=== PATIENT | female | born 1995 | race Hispanic/Latino ===

== ENCOUNTER 2018-10-28 10:36 | Emergency (ER) | payer OTHER ==
[2018-10-28 10:51] VITALS: BP 103/61
[2018-10-28 11:16] LABS: Basophils # (Auto) 0.1 K/mm3 (0.0-0.1); Basophils % (Auto) 0.6 % (0.0-1.8); Eosinophils # (Auto) 0.1 K/mm3 (0.0-0.4); Eosinophils % (Auto) 1.2 % (0.0-4.3); Hematocrit 39.1 % (30.3-42.9); Hemoglobin 13.2 gm/dl (10.1-14.3); Lymphocytes # (Auto) 2.3 K/mm3 (1.2-5.4); Lymphocytes % (Auto) 21.3 % (13.4-35.0); Mean Corpuscular HGB Conc 34 % (30-34); Mean Corpuscular Volume 92 fl (79-97); Monocytes # (Auto) 0.7 K/mm3 (0.0-0.8); Monocytes % (Auto) 6.7 % (0.0-7.3); Platelet Count 287 K/mm3 (140-440); Red Blood Count 4.27 M/mm3 (3.65-5.03); Red Cell Distribution Width 13.7 % (13.2-15.2)
--- NOTE | 2018-10-28 11:47 | Emergency Department Report ---
ED Female HPI - General Chief complaint: Vaginal Bleeding Stated complaint: 10WKS /BLEEDING Time Seen by Provider: 10/28/18 11:42 Source: patient Mode of arrival: Ambulatory Limitations: No Limitations - History of Present Illness Initial comments: This is a 23-year-old female who presents ED stating she is approximately 10 weeks , complaining of vaginal bleed that started yesterday. Patient states he was spotting yesterday and got worse this morning so she came to be evaluated. She states that vaginal bleeding and slight bright red in nature. She admits mild pelvic cramping no pain. She denies vaginal discharge, dysuria, chest pain, nausea vomiting or any other problems. MD Complaint: vaginal bleeding - Related Data Allergies Allergy/AdvReac Type Severity Reaction Status Date / Time No Known Allergies Allergy Unverified 10/28/18 10:38 ED Review of Systems ROS: Stated complaint: 10WKS /BLEEDING Other details as noted in HPI Comment: All other systems reviewed and negative ED Past Medical Hx - Past Medical History Previous Medical History?: No - Surgical History Additional Surgical History: D&C - Social History Smoking Status: Current Every Day Smoker Substance Use Type: None ED Physical Exam - General Limitations: No Limitations General appearance: alert, in no apparent distress - Head Head exam: Present: atraumatic, normocephalic - Eye Eye exam: Present: normal appearance - ENT ENT exam: Present: mucous membranes moist - Neck Neck exam: Present: normal inspection - Respiratory Respiratory exam: Present: normal lung sounds bilaterally. Absent: respiratory distress, wheezes - Cardiovascular Cardiovascular Exam: Present: regular rate, normal rhythm. Absent: systolic murmur, diastolic murmur, rubs, gallop - GI/Abdominal GI/Abdominal exam: Present: soft, normal bowel sounds. Absent: distended, tenderness, mass - Extremities Exam Extremities exam: Present: normal inspection - Back Exam Back exam: Present: normal inspection - Neurological Exam Neurological exam: Present: alert, oriented X3 - Psychiatric Psychiatric exam: Present: normal affect, normal mood - Skin Skin exam: Present: warm, dry, intact, normal color. Absent: rash ED Course Vital Signs 10/28/18 10:50 Temperature 98.8 F Pulse Rate 109 H Respiratory 14 Rate Blood Pressure 103/61 [Right] O2 Sat by Pulse 100 Oximetry ED Medical Decision Making - Lab Data Result diagrams: 10/28/18 10:51 - Medical Decision Making 23-year-old female presents to ED with threatened in ED course: Pt received ultra sound, CBC, urinalysis, test and quantitative ED All labs within normal limits, Ultrasound shows . See reported above Vital signs normalized patient is in no acute distress. I discussed with the patient if follow-up with her [facility]. I discussed all labs and ultrasound findings with the patient. I discussed with the patient that he if bleeding worsens or new symptoms develop to return to ED immediately Critical care attestation.: If time is entered above; I have spent that time in minutes in the direct care of this critically ill patient, excluding procedure time. ED Disposition Clinical Impression: Threatened in first trimester Disposition: DC-01 TO HOME OR SELFCARE Is pt being admited?: No Does the pt Need Aspirin: No Condition: Stable Instructions: Threatened Miscarriage (ED), (ED) Additional Instructions: Make sure to follow up with the [facility] as discussed. Take Tylenol as needed for pain. Continue to take vitamins. Take all your medications as you've been prescribed. If you have any worsening symptoms or develop new symptoms please return to ED immediately. [facility] [Primary Care Provider] - 3-5 Days KEVAN LAU MD [Staff Physician] - 3-5 Days AMY ALU MD [Referring] - 3-5 Days [facility] [Provider Group] - 3-5 Days Forms: Accompanied Note, Work/School Release Form(ED) Time of Disposition: 14:07
--- NOTE | 2018-10-28 17:42 | Ultrasound Report ---
FINAL REPORT EXAM: US OB < = 14 WEEKS FETUS HISTORY: vag bleed COMPARISON: None. TECHNIQUE: Transabdominal imaging of the pelvis was performed. FINDINGS: The uterus measures 8.3 x 5.8 x 5.3 centimeters and is anteverted. There is a gestational sac within the endometrium with mildly irregular borders. Gestational sac size is 2.7 centimeters, corresponding to a gestational age of 7 weeks, 5 days, with estimated date of de livery of 06/11/2019. No yolk sac is visualized. There is some internal debris within the the sac. A definite pole is not visualized. heart motion is not visualized. The right ovary measures 2.2 x 1 x 1.7 centimeters and is normal in morphology. The left ovary measures 2.3 x 1.8 x 2.7 centimeters. There is a 1.5 centimeter cystic lesion with per ipheral hyperemia in the left ovary that may represent a corpus luteum cyst. IMPRESSION: Gestational sac within the endometrium with mildly irregular borders and internal debris. Sac size co rresponds to a gestational age of 7 weeks, 5 days with estimated date of delivery of 06/11/2019. A de finite pole or yolk sac is not visualized. Differential diagnosis includes early intrauterine p regnancy versus failed 1st trimester . Recommend serial beta HCG measurements and ultrasound follow-up as clinically indicated.
--- NOTE | 2018-10-28 17:42 | Ultrasound Report ---
FINAL REPORT EXAM: US OB TRANSVAGINAL HISTORY: vag bleed COMPARISON: None. TECHNIQUE: Transvaginal obstetric imaging was performed. FINDINGS: The uterus measures 8.3 x 5.8 x 5.3 centimeters and is anteverted. There is a gestational sac within the endometrium with mildly irregular borders. Gestational sac size is 2.7 centimeters, corresponding to a gestational age of 7 weeks, 5 days, with estimated date of de livery of 06/11/2019. No yolk sac is visualized. There is some internal debris within the the sac. A definite pole is not visualized. heart motion is not visualized. The right ovary measures 2.2 x 1 x 1.7 centimeters and is normal in morphology. The left ovary measures 2.3 x 1.8 x 2.7 centimeters. There is a 1.5 centimeter cystic lesion with per ipheral hyperemia in the left ovary that may represent a corpus luteum cyst. IMPRESSION: Gestational sac within the endometrium with mildly irregular borders and internal debris. Sac size co rresponds to a gestational age of 7 weeks, 5 days with estimated date of delivery of 06/11/2019. A de finite pole or yolk sac is not visualized. Differential diagnosis includes early intrauterine p regnancy versus failed 1st trimester . Recommend serial beta HCG measurements and ultrasound follow-up as clinically indicated.
== END 2018-10-28 14:18 | disposition home or self-care (01) ==
LOC: ED 10:36
DX: O20.0 Threatened abortion (principal); Z3A.10 10 weeks gestation of pregnancy; O99.331 Smoking (tobacco) complicating pregnancy, first trimester
CPT/HCPCS: 36415; 76801; 76817; 84702; 85025; 86850; 86900; 86901